=== PATIENT | male | born 1930 | race Caucasian/White ===

== ENCOUNTER 2017-11-30 11:27 | Day surgery (SDC) | payer MEDICARE, OTHER ==
[2017-11-23 10:12] LABS: HEMATOCRIT 35.4 % (37.9-51.0); HEMOGLOBIN 12.1 g/dL (13.5-17.0); MEAN CORPUSCULAR HEMOGLOBIN 29.8 pg (27.0-33.4); MEAN CORPUSCULAR VOLUME 88 fl (80-97); PLATELET COUNT 263 10^3/uL (150-450); RED BLOOD COUNT 4.04 10^6/uL (4.35-5.55); RED CELL DISTRIBUTION WIDTH 14.2 % (11.5-14.0); WHITE BLOOD COUNT 7.9 10^3/uL (4.0-10.5)
[~2017-11-30 11:27] MED LIST: ACETAMINOPHEN 325 MG TABLET PO PRN; LIDOCAINE 2% INJ-PF (20 MG/ML) 10 ML AMPUL ONE; MIDAZOLAM 2 MG/2 ML INJ ONE; NORMAL SALINE 1000 ML (RENAL PATIENTS) IV PRN; ONDANSETRON HCL INJ/PF 4 MG/2 ML SDV ONE; PROPOFOL INJ 200 MG/20 ML VIAL IV ONE; RINGERS SOLUTION,LACTATED 1,000 ML IV PRN
--- NOTE | 2017-11-30 17:28 | Discharge Summary ---
Discharge Summary (SDC) - Discharge Final Diagnosis: Diverticulosis Date of Surgery: 11/30/17 Discharge Date: 11/30/17 Condition: Stable Referrals: ARLEY LYNCH MD [Primary Care Provider] - Discharge Diet: As Tolerated Respiratory Treatments at Home: Deep Breathing/Coughing, Incentive Spirometer Discharge Activity: Activity As Tolerated Home Care Assistance: None Needed Report the Following to Your Physician Immediately: Shortness of Breath, Nausea , Vomiting, Increase in Pain, Fever over 101 Degrees, Unusual Bleeding, Redness , Swelling, Warmth, Increased Soreness
--- NOTE | 2017-11-30 17:35 | Operative Report ---
Nonrecallable Operative Report DATE OF SURGERY: 11/30/17 PREOPERATIVE DIAGNOSIS: Screening for malignancy POSTOPERATIVE DIAGNOSIS: 1 no evidence of polyps or malignancy. 2 diverticulosis throughout the colon OPERATION: Colonoscopy to the cecum. SURGEON: NARCISA CASEY ANESTHESIA: LMAC TISSUE REMOVED OR ALTERED: None COMPLICATIONS: None apparent ESTIMATED BLOOD LOSS: None PROCEDURE: Drains/implants: None. Procedure in detail: After informed consent was obtained, the patient was brought to the operating room and laid in the left lateral decubitus position. The endoscope was passed up the rectum, sigmoid colon, descending colon, across the transverse colon, down the ascending colon, and into the cecum. The ileocecal valve and appendiceal orifice were identified. The scope was then withdrawn, circumferentially noting the mucosa. The prep was good. The scope was pulled back past the ascending colon, transverse colon, descending colon, sigmoid colon, and into the rectum. There were scattered diverticula throughout the colon extending from the cecum to the rectum. In the rectum a retroflexion maneuver was performed, noting small internal hemorrhoids. The scope was straightened, air was suctioned from the rectum, the scope was removed , and the procedure was concluded. Please note there were no masses, lesions, areas of irritation, or other abnormalities aside from the above mentioned diverticulosis. All sponge, instrument, and needle counts were correct. Condition: Stable.
[2017-11-30] MEDS ORDERED: FENTANYL CITRATE INJ/PF 100 MCG/2 ML AMPUL IV PRN ×3 (18:33)
[2017-11-30] MEDS ORDERED: MEPERIDINE HCL/PF INJ 25 MG/1 ML DISP.SYRIN IV PRN (18:33)
[2017-11-30] MEDS ORDERED: DIPHENHYDRAMINE HCL 50 MG/ML VIAL IV PRN (18:33)
[2017-11-30] MEDS ORDERED: ONDANSETRON HCL INJ/PF 4 MG/2 ML SDV IV PRN (18:33)
[2017-11-30] MEDS ORDERED: PROMETHAZINE HCL INJ 25 MG/1 ML VIAL IV PRN ×2 (18:33)
[2017-11-30] MEDS ORDERED: MORPHINE SULFATE 10 MG/ML INJ IV PRN (18:33)
[2017-11-30 19:40] VITALS: BP 166/68
== END 2017-11-30 18:35 | disposition home or self-care (01) ==
LOC: OROUT 11:27
PROVIDERS: ATTEND Surgery
DX: Z12.11 Encounter for screening for malignant neoplasm of colon (principal); K57.30 Diverticulosis of large intestine without perforation or abscess without bleeding; Z86.010 Personal history of colon polyps; E78.5 Hyperlipidemia, unspecified; I25.10 Atherosclerotic heart disease of native coronary artery without angina pectoris; J30.9 Allergic rhinitis, unspecified; E11.9 Type 2 diabetes mellitus without complications; M19.90 Unspecified osteoarthritis, unspecified site; E07.9 Disorder of thyroid, unspecified; Z95.1 Presence of aortocoronary bypass graft; Z79.84 Long term (current) use of oral hypoglycemic drugs; Z79.82 Long term (current) use of aspirin; Z79.899 Other long term (current) drug therapy; Z79.4 Long term (current) use of insulin; Z87.891 Personal history of nicotine dependence
CPT/HCPCS: 36415; 82962; 85027; G0121; J2250; J2405; J2704; J3490; 45378; 811

== ENCOUNTER 2018-08-16 11:29 | Day surgery (SDC) | payer MEDICARE, OTHER ==
[2018-08-09 12:31] LABS: HEMOGLOBIN 12.1 g/dL (13.5-17.0); MEAN CORPUSCULAR HEMOGLOBIN 29.2 pg (27.0-33.4); MEAN CORPUSCULAR HGB CONC 33.7 g/dL (32.0-36.0); MEAN CORPUSCULAR VOLUME 87 fl (80-97); PLATELET COUNT 271 10^3/uL (150-450); RED BLOOD COUNT 4.15 10^6/uL (4.35-5.55); RED CELL DISTRIBUTION WIDTH 14.5 % (11.5-14.0)
--- NOTE | 2018-08-09 12:55 | RADIOLOGY REPORT (SQ) ---
EXAM DESCRIPTION: CHEST PA/LATERAL COMPLETED DATE/TIME: 08/09/2018 11:17 am REASON FOR STUDY: PRE-OP COMPARISON: 08/09/2018 EXAM PARAMETERS: NUMBER OF VIEWS: two views TECHNIQUE: Digital Frontal and Lateral radiographic views of the chest acquired. RADIATION DOSE: NA LIMITATIONS: none FINDINGS: LUNGS AND PLEURA: No opacities, masses or pneumothorax. No pleural effusion. MEDIASTINUM AND HILAR STRUCTURES: No masses or contour abnormalities. HEART AND VASCULAR STRUCTURES: Heart normal size. No evidence for failure. BONES: No acute findings. HARDWARE: Sternotomy wires. OTHER: No other significant finding. IMPRESSION: NO SIGNIFICANT RADIOGRAPHIC FINDING IN THE CHEST. TECHNICAL DOCUMENTATION: JOB ID: [id number] [employer]- All Rights Reserved Reading location - IP/workstation name: [email or web address]
[2018-08-09 13:02] LABS: ANION GAP 11 (5-19); BLOOD UREA NITROGEN 23 mg/dL (7-20); CALCIUM 9.8 mg/dL (8.4-10.2); CARBON DIOXIDE 26 mmol/L (22-30); CHLORIDE 105 mmol/L (98-107); GLUCOSE 82 mg/dL (75-110); POTASSIUM 4.7 mmol/L (3.6-5.0); SODIUM 141.7 mmol/L (137-145)
--- NOTE | 2018-08-09 22:23 | EKG REPORT ---
SEVERITY:- ABNORMAL ECG - SINUS RHYTHM ATRIAL PREMATURE COMPLEX LEFT ANTERIOR FASCICULAR BLOCK CONSIDER ANTERIOR INFARCT BORDERLINE T ABNORMALITIES, DIFFUSE LEADS : Confirmed by: Franklin Gonsalves MD 09-Aug-2018 22:22:40
[~2018-08-16 11:29] MED LIST changes: +ACETAMINOPHEN 325 MG TABLET ONE; +CEFAZOLIN 2 GM/D5W RTU 2 GM/50 ML RTUPB IV ONE; +CEFAZOLIN 2 GM/D5W RTU 2 GM/50 ML RTUPB IV PRN; +IBUPROFEN 800 MG in NORMAL SALINE 250 ML IV PRN; +LACTATED RINGERS 1000 ML IV PRN; +LIDOCAINE 0.5% INJ-PF (5 MG/ML) 50 ML SDV SUBCUT PRN; -LIDOCAINE 2% INJ-PF (20 MG/ML) 10 ML AMPUL ONE; -MIDAZOLAM 2 MG/2 ML INJ ONE; -NORMAL SALINE 1000 ML (RENAL PATIENTS) IV PRN; -ONDANSETRON HCL INJ/PF 4 MG/2 ML SDV ONE; -PROPOFOL INJ 200 MG/20 ML VIAL IV ONE; -RINGERS SOLUTION,LACTATED 1,000 ML IV PRN
[2018-08-16] MEDS ORDERED: BUPIVACAINE HCL 0.25 % INJ/PF (2.5 MG/1 ML) 30 ML VIAL ONE (12:09)
[2018-08-16] MEDS ORDERED: LIDOCAINE 1% INJ-PF (10 MG/ML) 30 ML SDV ONE (14:19)
[2018-08-16] MEDS ORDERED: FENTANYL CITRATE INJ/PF 100 MCG/2 ML AMPUL ONE (15:10)
[2018-08-16] MEDS ORDERED: KETAMINE HCL INJ 500 MG/10 ML VIAL ONE (15:10)
[2018-08-16] MEDS ORDERED: ONDANSETRON HCL INJ/PF 4 MG/2 ML SDV ONE (15:10)
[2018-08-16] MEDS ORDERED: MIDAZOLAM 2 MG/2 ML INJ ONE (15:10)
[2018-08-16] MEDS ORDERED: PROPOFOL INJ 200 MG/20 ML VIAL IV ONE (15:11)
[2018-08-16] MEDS ORDERED: PROMETHAZINE HCL INJ 25 MG/1 ML VIAL IV PRN (16:44)
[2018-08-16] MEDS ORDERED: MEPERIDINE HCL/PF INJ 25 MG/1 ML DISP.SYRIN IV PRN (16:44)
[2018-08-16] MEDS ORDERED: DIPHENHYDRAMINE HCL 50 MG/ML VIAL IV PRN (16:44)
[2018-08-16] MEDS ORDERED: FENTANYL CITRATE INJ/PF 100 MCG/2 ML AMPUL IV PRN ×3 (16:44)
[2018-08-16 18:34] VITALS: BP 159/71
--- NOTE | 2018-08-19 08:07 | Discharge Summary ---
Discharge Summary (SDC) - Discharge Final Diagnosis: Symptomatic right inguinal hernia Date of Surgery: 08/19/18 Discharge Date: 08/19/18 Condition: Stable Forms: ASU Anesthesia D/C Instruction, Discharge POC-Surgical Service Treatment or Instructions: DIET TOLERATED NO LIFTING GREATER THAN 10 LBS FOR 6 WEEKS FOLLOW UP SCHEDULED [place] EVERY SIX HOURS FOR PAIN FIBER TWICE A DAY OK TO SHOWER IN 48 HRS NO TUB BATHS OR SWIMMING FOR 2 WEEKS WATCH FOR SIGNS OF INFECTION: FEVER OVER 101, REDNESS, WARMTH, FOUL SMELLING DRAINAGE Referrals: ARLEY LYNCH MD [Primary Care Provider] - NARCISA CASEY MD [ACTIVE STAFF] - 08/27/18 10:45 am Discharge Diet: As Tolerated Respiratory Treatments at Home: Deep Breathing/Coughing, Incentive Spirometer Discharge Activity: No Lifting Over 10 Pounds, No tub bath, Walk Frequently Home Care Assistance: None Needed Report the Following to Your Physician Immediately: Shortness of Breath, Nausea, Vomiting, Increase in Pain, Fever over 101 Degrees, Unusual Bleeding, Redness, Swelling, Warmth, Drainage-Foul Smelling
--- NOTE | 2018-08-19 08:14 | Operative Report ---
Nonrecallable Operative Report DATE OF SURGERY: 08/16/18 PREOPERATIVE DIAGNOSIS: Symptomatic right inguinal hernia POSTOPERATIVE DIAGNOSIS: Symptomatic indirect right inguinal hernia with laxity of the inguinal floor OPERATION: Open right inguinal hernia repair, plug and patch. SURGEON: NARCISA CASEY [facility] MASSAGE THERAPIST: ALISON TORRES ANESTHESIA: LMAC TISSUE REMOVED OR ALTERED: None COMPLICATIONS: None apparent ESTIMATED BLOOD LOSS: Minimal PROCEDURE: Drains/implants: Medium plug and patch Bard Marlex mesh. Procedure in detail: After informed consent was obtained, the patient was brought into the operating room and laid in the supine position. The area of the right groin, penis, and testicles were prepped and draped in a normal sterile fashion. An incision was created between the ASIS and the pubic tubercle. Dissection was carried through the subcutaneous tissue. Patient had very weak, attenuated external oblique fascia. This was divided, and the spermatic cord was easily identified. The patient had a moderate sized indirect inguinal hernia present. Patient also had extreme laxity of the inguinal floor, without obvious direct hernia defect. The spermatic cord was elevated away from the inguinal floor and a Briscoe drain was used for retraction purposes. Next, the hernia sac was freed from the cord structures, taking great care not to injure the cord structures. The hernia sac was reduced into the indirect inguinal hernia defect. A medium Bard plug was chosen to buttress the hernia defect. It was placed into the defect and sutured to the fascia circumferentially using 0 Prolene suture in interrupted fashion. Once this was completed, the Bard mesh was placed into the groin. The mesh was sutured to the pubic tubercle x2. Next, the remainder of the mesh was sutured to the fascia in simple running fashion. Inferiorly, the mesh was sutured to Poupart's ligament. Superiorly the mesh was sewn to the internal oblique aponeurosis. The cord was brought through the keyhole. The keyhole was tightened just enough to admit the tip of a pinky finger. Once this was completed, the mesh was found to lie in good place. The attenuated external oblique aponeurosis was then closed over top of the repair. This was done with 3-0 Vicryl suture in simple running fashion. The overlying skin was closed using 4-0 Vicryl Rapide suture in subcuticular fashion. Dressings were placed, and the procedure was concluded. All sponge, instrument, and needle counts were correct x2. Condition: Stable. Alison Torres PA-C was scrubbed and present the entirety of the procedure. She assisted with all portions of the procedure including opening of the groin, isolation of the cord, dissection of the hernia sac, placement of the mesh, closure of the fascia, and closure of the skin.
== END 2018-08-16 18:50 | disposition home or self-care (01) ==
LOC: OROUT 11:29
PROVIDERS: ATTEND Surgery
DX: K40.91 Unilateral inguinal hernia, without obstruction or gangrene, recurrent (principal); E11.9 Type 2 diabetes mellitus without complications; Z95.1 Presence of aortocoronary bypass graft; Z86.010 Personal history of colon polyps; Z87.891 Personal history of nicotine dependence; Z79.84 Long term (current) use of oral hypoglycemic drugs; Z79.82 Long term (current) use of aspirin; I10 Essential (primary) hypertension; Z79.4 Long term (current) use of insulin
CPT/HCPCS: 93005; 36415; 82962; 85027; 80048; 71046; 93010; 49505; C1781; A9270; J2250; J3490; J7050; J2704; J0690; J1741; 830; J2405; J3010